=== PATIENT | male | born 1950 | race Caucasian/White ===

== ENCOUNTER 2020-09-04 11:24 | Inpatient (IN) | payer OTHER ==
--- NOTE | 2020-09-04 12:00 | RAD REPORT ---
EXAM DESCRIPTION: CT - Head Brain Wo Cont - 09/04/2020 11:50 am CLINICAL HISTORY: Head injury status post fall COMPARISON: None. TECHNIQUE: Computed axial tomography of the head was obtained. IV contrast was not requested. All CT scans are performed using dose optimization technique as appropriate and may include automated exposure control or mA/KV adjustment according to patient size. FINDINGS: An intracranial bleed is not seen . The ventricles are normal in caliber. No extra-axial fluid collection is noted. Fluid within the sinuses/ mastoids is not seen. IMPRESSION: No acute intracranial abnormality is seen. If patient's symptoms persist MRI of the bra in would be recommended.
[2020-09-04 12:35] LABS: Absolute Lymphocytes (CBC) 1.2 K/uL (0.7-4.9); Hematocrit 34.5 % (39.6-49.0); Lymphocytes % 8.9 % (15.3-44.8); MPV 10.8 fL (7.6-11.3); RBC Red Blood Cell Count 3.96 M/uL (4.33-5.43)
--- NOTE | 2020-09-04 12:37 | RAD REPORT ---
EXAM DESCRIPTION: RAD - Pelvis - 09/04/2020 12:15 pm CLINICAL HISTORY: Pelvic pain status post injury FINDINGS: No fracture or dislocation is seen. Bones are osteoporotic If the patient continues to have symptoms to suggest an occult fracture then CT or MRI would be recom mended
--- NOTE | 2020-09-04 12:37 | RAD REPORT ---
EXAM DESCRIPTION: RAD - Hip Left 2 View - 09/04/2020 12:14 pm CLINICAL HISTORY: Left hip pain status post injury FINDINGS: Diffuse edema is present within soft tissue No fracture or dislocation is seen. Bones are osteoporotic If the patient continues to have symptoms to suggest an occult fracture then CT or MRI would be recom mended
[2020-09-04 12:48] LABS: Potassium 4.2 mmol/L (3.5-5.1)
[2020-09-04 12:55] LABS: Protime INR 1.06
[2020-09-04] MEDS ORDERED: NA CHLORIDE 0.9% 1,000 ML ONE ×2 (15:34→17:41)
[2020-09-04] MEDS ORDERED: ONDANSETRON 4 MG/2 ML VIAL ONE (15:46)
--- NOTE | 2020-09-04 15:47 | ER ---
Nurse's Notes [facility] Name: Antonio Sarkar Age: 70 yrs Sex: Male : 1950 Arrival Date: 09/04/2020 Time: 11:32 Bed 4 Private MD: Diagnosis: Left lower extremity hematoma;Dizziness and giddiness Presentation: 09/04 11:30 Initial Sepsis Screen: Does the patient meet any 2 criteria? No. Patient's initial ph sepsis screen is negative. Does the patient have a suspected source of infection? No. Patient's initial sepsis screen is negative. Risk Assessment: Do you want to hurt yourself or someone else? Patient reports no desire to harm self or others. Onset of symptoms was September 04, 2020. 11:32 Chief complaint: EMS states: Pt reports falling out of bed at approx 0300 this morning, ph landed on L hip and hit L side of head. States that he went back to sleep, woke up later, was able to ambulate but then began having pain and swelling to L hip. Also reports slight dizziness, denies LOC, does take Eliquis. Care prior to arrival: None. Mechanism of Injury: Fall out of bed. Trauma event details: Injury occurred in the [facility], Injury occurred: at home. Injury occurred: September 04, 2020. 11:32 Acuity: KAYDEN 2 ph 11:32 Method Of Arrival: EMS: [facility] ph 12:03 Coronavirus screen: Client denies travel out of the [place] in the last 14 days. At this ph time, the client does not indicate any symptoms associated with coronavirus-19. Ebola Screen: No symptoms or risks identified at this time. Trauma Activation: Physician: ED Physician; Name: Hayden; Notified At: 11:32; Arrived At: 11:28 Physician: General Surgeon; Name: ; Notified At: 11:32; Arrived At: Physician: Radiology; Name: ; Notified At: 11:32; Arrived At: Physician: Respiratory; Name: ; Notified At: 11:32; Arrived At: Physician: Lab; Name: ; Notified At: 11:32; Arrived At: Historical: - Allergies: 11:40 No Known Allergies; ph - Home Meds: 11:40 amlodipine 5 mg tab 1 tab once daily [Active]; [place] Thyroid 165 mg Oral [Active]; ph fenofibrate 150 mg oral cap 1 cap once daily [Active]; furosemide 40 mg Oral tab [Active]; potassium chloride 10 mEq Oral TbER [Active]; Eliquis 5 mg oral tab 1 tab 2 times per day [Active]; lisinopril 20 mg Oral tab 1 tab once daily [Active]; metoprolol tartrate 50 mg Oral tab 1 tab 2 times per day [Active]; - PMHx: 11:40 Hypertension; Hypothyroidism; Atrial Fib; ph - Immunization history:: Adult Immunizations unknown. - Social history:: Smoking status: Patient denies any tobacco usage or history of. - Immunization history: Last tetanus immunization: unknown. - Family history:: not pertinent. - Hospitalizations: : No recent hospitalization is reported. Screenin:42 Abuse screen: Denies threats or abuse. Denies injuries from another. Nutritional ph screening: No deficits noted. Tuberculosis screening: No symptoms or risk factors identified. Fall Risk Fall in past 12 months (25 points). No secondary diagnosis (0 pts). IV access (20 points). Ambulatory Aid- None/Bed Rest/Nurse Assist (0 pts). Gait- Normal/Bed Rest/Wheelchair (0 pts) Mental Status- Oriented to own ability (0 pts). Total Perez Fall Scale indicates Low Risk Score (25-44 pts). Fall prevention measures have been instituted. Side Rails Up X 2 Placed close to Nursing Station Frequent Obs/Assesments occuring Family Present and informed to notify staff if they need to leave bedside As available Patient and Family Educated on Fall Prevention Program and strategies. Primary Survey: 11:41 NO uncontrolled hemorrhage observed. A: The patient is alert. Airway: patent, No ph supplemental oxygen in use on arrival. Oral cavity: clear, Trachea midline. Breathing/Chest: Respiratory pattern: regular, Respiratory effort: spontaneous, unlabored, Breath sounds: clear, Chest inspection: symmetrical rise and fall of the chest. Circulation: Skin color: pink, Skin temperature: warm, dry. Disability Alert. Exposure/Environment: All clothing and personal items were removed. Forensic evidence collection is not deemed to be indicated at this time. Items placed in patient belonging bag. There is no evidence of uncontrolled external bleeding. Obvious injury(ies) are noted at this time: swelling noted to L hip, bruising to L ear and L sabianist area A warming method has been applied: A warm blanket has been provided to the patient. 16:54 Reassessment Airway Airway Patent Oxygen No O2 Breathing/Chest Respiratory pattern ph Regular Respiratory effort Spontaneous Unlabored Breath sounds Clear Chest inspection Symmetrical Circulation Color [place] Temperature Warm Dry. Secondary Survey: 11:42 HEENT: Head Other bruising to L sabianist Ears: bruising to L ear. Musculoskeletal: ph Swelling present in left hip and lateral aspect of left thigh. Assessment: 11:42 Reassessment: Pt taken to CT via stretcher. ph 12:10 General: Appears in no apparent distress. comfortable, well groomed, Behavior is calm, ph cooperative, appropriate for age. Pain: Complains of pain in lateral aspect of left thigh and left hip. Neuro: Level of Consciousness is awake, alert, obeys commands, Oriented to person, place, time, situation. Cardiovascular: Capillary refill < 3 seconds in bilateral fingers. Respiratory: Airway is patent Respiratory effort is even, unlabored, Respiratory pattern is regular, symmetrical. GI: No signs and/or symptoms were reported involving the gastrointestinal system. EENT: Pinna bruising noted to L ear. Derm: Skin is healthy with good turgor, Skin is pink, warm \T\ dry. Musculoskeletal: Circulation, motion, and sensation intact. Range of motion: intact in all extremities, Swelling present in lateral aspect of left thigh and left hip. 13:30 Reassessment: Patient appears in no apparent distress at this time. Patient and/or ph family updated on plan of care and expected duration. Pain level reassessed. Patient is alert, oriented x 3, equal unlabored respirations, skin warm/dry/pink. 14:30 Reassessment: Patient appears in no apparent distress at this time. Patient and/or ph family updated on plan of care and expected duration. Pain level reassessed. Patient is alert, oriented x 3, equal unlabored respirations, skin warm/dry/pink. 15:30 Reassessment: Patient appears in no apparent distress at this time. Patient and/or ph family updated on plan of care and expected duration. Pain level reassessed. Pt attempted to sit up in bed, c/o dizziness, appears pale and tachypneic, also reports nausea, ERP notified and verbal order received for MARLA Gonzalez. 16:00 Reassessment: Patient appears in no apparent distress at this time. Patient and/or ph family updated on plan of care and expected duration. Pain level reassessed. Patient is alert, oriented x 3, equal unlabored respirations, skin warm/dry/pink. Pt reports that dizziness and nausea have improved, COVID swab collected and sent to lab. 17:00 Reassessment: Patient appears in no apparent distress at this time. Patient and/or ph family updated on plan of care and expected duration. Pain level reassessed. Patient is alert, oriented x 3, equal unlabored respirations, skin warm/dry/pink. Pt's at nurse's station to notify staff that pt is feeling dizzy. Pt found to be diaphoretic and hypotensive at 72/45, ERP notified, EKG obtained, additional fluid bolus given and repeat hemoglobin drawn. 17:47 Reassessment: Patient appears in no apparent distress at this time. Patient and/or ph family updated on plan of care and expected duration. Pain level reassessed. Patient is alert, oriented x 3, equal unlabored respirations, skin warm/dry/pink. Pt reports that dizziness has improved, BP currently 125/69. 19:05 Reassessment: Patient appears in no apparent distress at this time. Patient and/or ph family updated on plan of care and expected duration. Pain level reassessed. Patient is alert, oriented x 3, equal unlabored respirations, skin warm/dry/pink. L thigh wrapped w/ FABRICIO wrap and sheet wrapped around hips for compression. Vital Signs: 11:30 BP 118 / 64; Pulse 73; Resp 18; Temp 97.5; Pulse Ox 98% on R/A; Weight 122.47 kg; ph Height 6 ft. 0 in. (182.88 cm); Pain 2/10; 12:45 BP 108 / 65; Pulse 66; Resp 18; Pulse Ox 97% on R/A; ph 14:04 BP 124 / 68; Pulse 67; Resp 18; Pulse Ox 100% on R/A; ph 15:00 BP 107 / 68; Pulse 66; Resp 18; Pulse Ox 100% ; ph 16:30 BP 126 / 65; Pulse 74; Resp 18; Pulse Ox 98% on R/A; ph 17:00 BP 72 / 45; Pulse 66; Resp 18; Pulse Ox 100% on R/A; ph 17:50 BP 123 / 64; Pulse 67; Resp 12; Pulse Ox 99% on R/A; ph 18:06 BP 125 / 57; Pulse 68; ph 19:06 BP 142 / 73; Pulse 65; Resp 20; Pulse Ox 98% on R/A; ph 11:30 Body Mass Index 36.62 (122.47 kg, 182.88 cm) ph Mcneil Coma Score: 11:35 Eye Response: spontaneous(4). Verbal Response: oriented(5). Motor Response: obeys ph commands(6). Total: 15. 12:45 Eye Response: spontaneous(4). Verbal Response: oriented(5). Motor Response: obeys ph commands(6). Total: 15. 14:04 Eye Response: spontaneous(4). Verbal Response: oriented(5). Motor Response: obeys ph commands(6). Total: 15. 15:00 Eye Response: spontaneous(4). Verbal Response: oriented(5). Motor Response: obeys ph commands(6). Total: 15. 16:30 Eye Response: spontaneous(4). Verbal Response: oriented(5). Motor Response: obeys ph commands(6). Total: 15. 17:50 Eye Response: spontaneous(4). Verbal Response: oriented(5). Motor Response: obeys ph commands(6). Total: 15. 19:06 Eye Response: spontaneous(4). Verbal Response: oriented(5). Motor Response: obeys ph commands(6). Total: 15. Trauma Score (Adult): 11:35 Eye Response: spontaneous(1); Verbal Response: oriented(1); Motor Response: obeys ph commands(2); Systolic BP: > 89 mm Hg(4); Respiratory Rate: 10 to 29 per min(4); Lorena Score: 15; Trauma Score: 12 12:45 Eye Response: spontaneous(1); Verbal Response: oriented(1); Motor Response: obeys ph commands(2); Systolic BP: > 89 mm Hg(4); Respiratory Rate: 10 to 29 per min(4); Mcneil Score: 15; Trauma Score: 12 14:04 Eye Response: spontaneous(1); Verbal Response: oriented(1); Motor Response: obeys ph commands(2); Systolic BP: > 89 mm Hg(4); Respiratory Rate: 10 to 29 per min(4); Mcneil Score: 15; Trauma Score: 12 15:00 Eye Response: spontaneous(1); Verbal Response: oriented(1); Motor Response: obeys ph commands(2); Systolic BP: > 89 mm Hg(4); Respiratory Rate: 10 to 29 per min(4); Mcneil Score: 15; Trauma Score: 12 16:30 Eye Response: spontaneous(1); Verbal Response: oriented(1); Motor Response: obeys ph commands(2); Systolic BP: > 89 mm Hg(4); Respiratory Rate: 10 to 29 per min(4); Lorena Score: 15; Trauma Score: 12 17:50 Eye Response: spontaneous(1); Verbal Response: oriented(1); Motor Response: obeys ph commands(2); Systolic BP: > 89 mm Hg(4); Respiratory Rate: 10 to 29 per min(4); Lorena Score: 15; Trauma Score: 12 19:06 Eye Response: spontaneous(1); Verbal Response: oriented(1); Motor Response: obeys ph commands(2); Systolic BP: > 89 mm Hg(4); Respiratory Rate: 10 to 29 per min(4); Mcneil Score: 15; Trauma Score: 12 ED Course: 11:32 Patient arrived in ED. ph 11:35 Triage completed. ph 11:37 Mookie Blake MD is Attending Physician. rn 11:40 Arm band placed on Patient placed in an exam room, on a stretcher, on pulse oximetry. ph 11:50 CT Head Brain wo Cont In Process Unspecified. EDMS 12:02 Arlene Crowder, RN is Primary Nurse. ph 12:11 XRAY Hip LEFT 2 view In Process Unspecified. EDMS 12:11 X-ray completed. Portable x-ray completed in exam room. Patient tolerated procedure sw well. 12:12 XRAY Pelvis In Process Unspecified. EDMS 12:23 Initial lab(s) drawn, by me, sent to lab. Inserted saline lock: 20 gauge in left hand, jl7 using aseptic technique. Blood collected. 12:28 Patient has correct armband on for positive identification. Bed in low position. Call ph light in reach. Side rails up X 1. Pulse ox on. NIBP on. Door closed. Noise minimized. Warm blanket given. 12:28 Patient maintains SpO2 saturation greater than 95% on room air. ph 12:28 Thermoregulation: warm blanket given to patient. ph 13:00 Ice pack to injury. may 15:46 Salvatore Rivera is Hospitalizing Provider. rn 16:53 No provider procedures requiring assistance completed. Patient admitted, IV remains in ph place. Administered Medications: 15:17 Drug: NS 0.9% 1000 ml Route: IV; Rate: 1000 ml; Site: left hand; ph 16:35 Follow up: Response: No adverse reaction; IV Status: Completed infusion; IV Intake: ph 1000ml 15:43 Drug: Zofran (Ondansetron) 4 mg Route: IVP; Site: left hand; ph 16:55 Follow up: Response: No adverse reaction; Nausea is decreased ph 17:25 Drug: NS 0.9% 500 ml Route: IV; Rate: bolus; Site: left hand; ph 18:15 Follow up: Response: No adverse reaction; IV Status: Completed infusion; IV Intake: ph 500ml Intake: 11:35 PO: 0ml; Total: 0ml. ph 16:30 IV: 1000ml (IV Fluid); Total: 1000ml. ph 16:35 IV: 1000ml; Total: 2000ml. ph 18:15 IV: 500ml; Total: 2500ml. ph Output: 11:35 Urine: 0ml; Total: 0ml. ph Outcome: 15:47 Decision to Hospitalize by Provider. rn 19:45 Admitted to Med/surg accompanied by tech, via stretcher, with chart, Report called to demetra Hancock RN 19:45 Condition: good 19:45 Instructed on the need for admit. 19:46 Patient left the ED. demetra 19:46 Patient's length of stay in the Emergency Department was greater than 2 hours. awaiting demetra admissionPatient's length of stay extended due to Signatures: Dispatcher [employer] EDMS Mookie Blake MD MD rn Hall, Patricia, RN RN Sada Cali Jahala, RN RN jl7 Malcaba, Joseph, RN AMBER mccrary
--- NOTE | 2020-09-04 15:48 | EDPHYS ---
Physician Documentation [facility] Name: Antonio Sarkar Age: 70 yrs Sex: Male : 1950 Arrival Date: 09/04/2020 Time: 11:32 Bed 4 Private MD: ED Physician Mookie Blake HPI: 09/04 13:24 This 70 yrs old Male presents to ER via EMS with complaints of Fall Injury, rn Hip Pain. 13:24 Details of fall: The patient fell from a supine position. Onset: The symptoms/episode rn began/occurred this morning. Associated injuries: The patient sustained injury to the head, left hip. Severity of symptoms: At their worst the symptoms were moderate, in the emergency department the symptoms are unchanged. The patient has not experienced similar symptoms in the past. The patient has not recently seen a physician. Reports fall out of bed this AM, hit head and left hip, on eliquis. Reports able to walk initially, then got more sore. Reports swelling to left lateral hip and increase in soreness. No chest pain or tenderness, no back or abd pain.. Historical: - Allergies: 11:40 No Known Allergies; ph - Home Meds: 11:40 amlodipine 5 mg tab 1 tab once daily [Active]; [place] Thyroid 165 mg Oral [Active]; ph fenofibrate 150 mg oral cap 1 cap once daily [Active]; furosemide 40 mg Oral tab [Active]; potassium chloride 10 mEq Oral TbER [Active]; Eliquis 5 mg oral tab 1 tab 2 times per day [Active]; lisinopril 20 mg Oral tab 1 tab once daily [Active]; metoprolol tartrate 50 mg Oral tab 1 tab 2 times per day [Active]; - PMHx: 11:40 Hypertension; Hypothyroidism; Atrial Fib; ph - Immunization history:: Adult Immunizations unknown. - Social history:: Smoking status: Patient denies any tobacco usage or history of. - Immunization history: Last tetanus immunization: unknown. - Family history:: not pertinent. - Hospitalizations: : No recent hospitalization is reported. ROS: 13:24 Constitutional: Negative for fever, chills, and weight loss, Eyes: Negative for injury, rn pain, redness, and discharge, Neck: Negative for injury, pain, and swelling, Cardiovascular: Negative for chest pain, palpitations, and edema, Respiratory: Negative for shortness of breath, cough, wheezing, and pleuritic chest pain, Abdomen/GI: Negative for abdominal pain, nausea, vomiting, diarrhea, and constipation, Back: Negative for injury and pain, : Negative for injury, bleeding, discharge, and swelling, MS/Extremity: + left hip swelling and pain Skin: Negative for rash, and discoloration, Neuro: Negative for headache, weakness, numbness, tingling, and seizure. Exam: 13:24 Constitutional: This is a well developed, well nourished patient who is awake, alert, rn and in no acute distress. Head/Face: + left temporal ecchymosis, no laceration Eyes: Pupils equal round and reactive to light, extra-ocular motions intact. Neck: No midline tenderness Chest/axilla: No focal rib tenderness Cardiovascular: Irregular rhythm, regular rate. No pulse deficits. Respiratory: No increased work of breathing, no retractions or nasal flaring. Abdomen/GI: soft, non-tender Skin: Warm, dry MS/ Extremity: Pulses equal, no cyanosis. Neuro: Awake and alert, GCS 15, oriented to person, place, time, and situation. Cranial nerves II-XII grossly intact. Motor strength 5/5 in all extremities. Sensory grossly intact. Vital Signs: 11:30 BP 118 / 64; Pulse 73; Resp 18; Temp 97.5; Pulse Ox 98% on R/A; Weight 122.47 kg; ph Height 6 ft. 0 in. (182.88 cm); Pain 2/10; 12:45 BP 108 / 65; Pulse 66; Resp 18; Pulse Ox 97% on R/A; ph 14:04 BP 124 / 68; Pulse 67; Resp 18; Pulse Ox 100% on R/A; ph 15:00 BP 107 / 68; Pulse 66; Resp 18; Pulse Ox 100% ; ph 16:30 BP 126 / 65; Pulse 74; Resp 18; Pulse Ox 98% on R/A; ph 17:00 BP 72 / 45; Pulse 66; Resp 18; Pulse Ox 100% on R/A; ph 17:50 BP 123 / 64; Pulse 67; Resp 12; Pulse Ox 99% on R/A; ph 18:06 BP 125 / 57; Pulse 68; ph 19:06 BP 142 / 73; Pulse 65; Resp 20; Pulse Ox 98% on R/A; ph 11:30 Body Mass Index 36.62 (122.47 kg, 182.88 cm) ph [place] Coma Score: 11:35 Eye Response: spontaneous(4). Verbal Response: oriented(5). Motor Response: obeys ph commands(6). Total: 15. 12:45 Eye Response: spontaneous(4). Verbal Response: oriented(5). Motor Response: obeys ph commands(6). Total: 15. 14:04 Eye Response: spontaneous(4). Verbal Response: oriented(5). Motor Response: obeys ph commands(6). Total: 15. 15:00 Eye Response: spontaneous(4). Verbal Response: oriented(5). Motor Response: obeys ph commands(6). Total: 15. 16:30 Eye Response: spontaneous(4). Verbal Response: oriented(5). Motor Response: obeys ph commands(6). Total: 15. 17:50 Eye Response: spontaneous(4). Verbal Response: oriented(5). Motor Response: obeys ph commands(6). Total: 15. 19:06 Eye Response: spontaneous(4). Verbal Response: oriented(5). Motor Response: obeys ph commands(6). Total: 15. Trauma Score (Adult): 11:35 Eye Response: spontaneous(1); Verbal Response: oriented(1); Motor Response: obeys ph commands(2); Systolic BP: > 89 mm Hg(4); Respiratory Rate: 10 to 29 per min(4); [place] Score: 15; Trauma Score: 12 12:45 Eye Response: spontaneous(1); Verbal Response: oriented(1); Motor Response: obeys ph commands(2); Systolic BP: > 89 mm Hg(4); Respiratory Rate: 10 to 29 per min(4); [place] Score: 15; Trauma Score: 12 14:04 Eye Response: spontaneous(1); Verbal Response: oriented(1); Motor Response: obeys ph commands(2); Systolic BP: > 89 mm Hg(4); Respiratory Rate: 10 to 29 per min(4); [place] Score: 15; Trauma Score: 12 15:00 Eye Response: spontaneous(1); Verbal Response: oriented(1); Motor Response: obeys ph commands(2); Systolic BP: > 89 mm Hg(4); Respiratory Rate: 10 to 29 per min(4); [place] Score: 15; Trauma Score: 12 16:30 Eye Response: spontaneous(1); Verbal Response: oriented(1); Motor Response: obeys ph commands(2); Systolic BP: > 89 mm Hg(4); Respiratory Rate: 10 to 29 per min(4); [place] Score: 15; Trauma Score: 12 17:50 Eye Response: spontaneous(1); Verbal Response: oriented(1); Motor Response: obeys ph commands(2); Systolic BP: > 89 mm Hg(4); Respiratory Rate: 10 to 29 per min(4); [place] Score: 15; Trauma Score: 12 19:06 Eye Response: spontaneous(1); Verbal Response: oriented(1); Motor Response: obeys ph commands(2); Systolic BP: > 89 mm Hg(4); Respiratory Rate: 10 to 29 per min(4); [place] Score: 15; Trauma Score: 12 MDM: 11:38 Patient medically screened. rn 15:44 Differential diagnosis: closed head injury, contusion, fracture, hematoma. Data rn reviewed: vital signs, nurses notes, lab test result(s), radiologic studies, CT scan, plain films, and as a result, I will admit patient. Counseling: I had a detailed discussion with the patient and/or guardian regarding: the historical points, exam findings, and any diagnostic results supporting the discharge/admit diagnosis, lab results, radiology results, the need for further work-up and treatment in the hospital. Response to treatment: the patient's symptoms have mildly improved after treatment, and as a result, I will admit patient. Admission orders: after a detailed discussion of the patient's condition and case, the admit orders are written by me. ED course: Pt without fracture, ct head no acute findings, still complaining of feeling lightheaded, will admit to hospitalist service for further observation, fluids, serial H/H, ice, compression wrapping to make sure hematoma does not increase in size or silva blood. . 17:34 ED course: Called to room after patient tried to situp and got lightheaded, better when rn laying down, repeat BP 125/69, repeat hemoglobin sent, patient declines blood if needed is [employer]. . 09/04 11:39 Order name: CBC with Diff; Complete Time: 12:45 rn 09/04 11:39 Order name: Protime (+inr); Complete Time: 13:19 rn 09/04 11:39 Order name: Ptt, Activated; Complete Time: 13:19 rn 09/04 11:39 Order name: Basic Metabolic Panel; Complete Time: 13:19 rn 09/04 15:32 Order name: Glucose, Ancillary Testing; Complete Time: 16:23 EDWV 09/04 11:39 Order name: XRAY Hip LEFT 2 view; Complete Time: 12:45 rn 09/04 11:39 Order name: XRAY Pelvis; Complete Time: 12:45 rn 09/04 11:39 Order name: CT Head Brain wo Cont; Complete Time: 12:13 rn 09/04 17:27 Order name: Hemoglobin rn 09/04 17:43 Order name: Hemoglobin; Complete Time: 18:37 EDWV 09/04 17:53 Order name: SARS-COV-2 RT PCR; Complete Time: 18:37 [facility] 09/04 11:39 Order name: IV Start; Complete Time: 12:23 rn Administered Medications: 15:17 Drug: NS 0.9% 1000 ml Route: IV; Rate: 1000 ml; Site: left hand; ph 16:35 Follow up: Response: No adverse reaction; IV Status: Completed infusion; IV Intake: ph 1000ml 15:43 Drug: Zofran (Ondansetron) 4 mg Route: IVP; Site: left hand; ph 16:55 Follow up: Response: No adverse reaction; Nausea is decreased ph 17:25 Drug: NS 0.9% 500 ml Route: IV; Rate: bolus; Site: left hand; ph 18:15 Follow up: Response: No adverse reaction; IV Status: Completed infusion; IV Intake: ph 500ml Disposition: 09/04/20 15:47 Hospitalization ordered by Salvatore Rivera for Observation. Preliminary diagnosis are Left lower extremity hematoma, Dizziness and giddiness. - Bed requested for Telemetry/MedSurg (observation). - Status is Observation. jm8 - Condition is Stable. - Problem is new. - Symptoms have improved. Signatures: Dispatcher [employer] EDMS Nati Pozo Roman, MD MD rn Hall, Patricia, RN RN ph Salvatore Murray RN RN jm8 Corrections: (The following items were deleted from the chart) 13:24 12:20 CORONAVIRUS+MR.LAB.BRZ ordered. EDWV EDMS 13:26 13:24 Reports fall out of bed this AM, hit head and left hip, on eliquis. Reports able rn to walk initially, then got more sore. Reports swelling to left lateral hip and increase in soreness. . rn 16:30 15:51 CORONAVIRUS+MR.LAB.BRZ ordered. EDWV EDMS 18:48 15:47 Hospitalization Ordered by Salvatore Rivera for Observation. Preliminary diagnosis bd is Left lower extremity hematoma; Dizziness and giddiness. Bed requested for Telemetry/MedSurg (observation). Status is Observation. Condition is Stable. Problem is new. Symptoms have improved. rn 19:46 18:48 09/04/2020 15:47 Hospitalization Ordered by Salvatore Rivera for Observation. jm8 Preliminary diagnosis is Left lower extremity hematoma; Dizziness and giddiness. Bed requested for Telemetry/MedSurg (observation). Status is Observation. Condition is Stable. Problem is new. Symptoms have improved. bd
--- NOTE | 2020-09-04 18:12 | P.HP ---
Certification for Inpatient Patient admitted to: Observation With expected LOS: <2 Midnights Patient will require the following post-hospital care: None Practitioner: I am a practitioner with admitting privileges, knowledge of patient current condition, hospital course, and medical plan of care. Services: Services provided to patient in accordance with Admission requirements found in Title 42 Section 412.3 of the Code of Federal Regulations Patient History Date of Service: 09/04/20 Primary Care Provider: Dr. Segun Polanco Reason for admission: large hematoma L hip after fall History of Present Illness: This is a 70 y/o M w/ HTN, HLD, hypothyroid, a-fib on [employer], who presents today after a fall injury this morning. He was sleeping and rolled off his bed after having a vivid dream. He immediately woke up after his fall. He hit his head and L hip. He denies any LOC. He was able to stand and walk after fall. He started having severe pain 8/10 an hour after his fall. He started to feel weak, diaphoretic, dizzy and had some relief w/ tonic water. He denies any numbness or tingling in extremities. Head CT: no acute abnormalities seen. Pelvis XR: no fracture or dislocation is seen. bones are osteoporotic Hip XR: diffuse edema is present w/in soft tissue. no fracture or dislocation is seen. bones are osteoporotic - Past Medical/Surgical History -: HTN -: HLD -: hypothyroid -: a-fib -: knee replacement -: carpal tunnel Psychosocial/ Personal History: lives w/ at home - Family History Family History: Reviewed- Non-Contributory - Family History Father -: Kidney disease (a-fib) Mother -: Heart disease, Diabetes - Social History Smoking Status: Never smoker Alcohol use: No CD- Drugs: No Caffeine use: Yes Review of Systems Musculoskeletal: As per HPI Physical Examination - Physical Exam General: Alert, In no apparent distress, Oriented x3, Other (appears pale) HEENT: Atraumatic, Normocephalic, Mucous membr. moist/pink, EOMI Neck: Supple Respiratory: Clear to auscultation bilaterally, Normal air movement Cardiovascular: No edema, Normal pulses, Regular rate/rhythm Gastrointestinal: Normal bowel sounds, Soft and benign, Non-distended, No tenderness, No rebound Musculoskeletal: Tenderness (L thigh/hip), Other (hematoma on L thigh/hip) Neurological: Normal speech, Normal tone, Sensation intact, Normal affect - Studies Laboratory Data (last 24 hrs) 09/04/20 12:17: Sodium 140, Potassium 4.2, BUN 25 H, Creatinine 1.28, Glucose 105 09/04/20 12:17: PT 12.2, INR 1.06, APTT 25.6 09/04/20 12:17: WBC 13.90 H, Hgb 11.6 L, Hct 34.5 L, Plt Count 224 Assessment and Plan - Problems (Diagnosis) (1) Hematoma Current Visit: Yes Status: Acute (2) HTN (hypertension) Current Visit: Yes Status: Chronic Qualifiers: Hypertension type: essential hypertension Qualified Code(s): I10 - Essential (primary) hypertension (3) Hyperlipemia Current Visit: Yes Status: Chronic (4) Hypothyroid Current Visit: Yes Status: Chronic (5) Atrial fibrillation Current Visit: Yes Status: Chronic - Plan ice packs and compression wrap pain control with norco prn trend H/H pt is a Che[place]ism, declines any blood products consult PT thyroid and lipid panel pending continue home meds, hold eliquis Discharge Plan: Home Plan to discharge in: 24 Hours - Advance Directives Does patient have a Living Will: No Does patient have a Durable POA for Healthcare: No - Code Status/Comfort Care Code Status Assessed: No Code Status: Do Not Attempt Resuscitat
[2020-09-04] MEDS ORDERED: ONDANSETRON 4 MG/2 ML VIAL IV PRN (20:23)
[2020-09-04] MEDS ORDERED: ACETAMINOPHEN 500 MG TAB PO PRN (20:23)
[2020-09-04] MEDS: HYDROCODONE/APAP 5/325 MG TAB PO PRN (20:36)
[2020-09-04] MEDS: NA CHLORIDE 0.9% 1,000 ML IV SCH (20:37)
[2020-09-04 21:33] LABS: Thyroid Stimulating Hormone 0.08 uIU/mL (0.360-3.740)
[2020-09-05 01:21] LABS: Urine Appearance CLEAR (Clear); Urine Bilirubin NEGATIVE (Negative); Urine Blood NEGATIVE (Negative); Urine Color YELLOW (Yellow); Urine Glucose NEGATIVE (Negative); Urine Protein NEGATIVE (Negative); Urine Urobilinogen 0.2 mg/dL (0.2-1.0)
[2020-09-05 01:26] LABS: Urine Microscopic Reflex NO UMIC
[2020-09-05 06:17] LABS: Absolute Lymphocytes (CBC) 1.6 K/uL (0.7-4.9); Basophils % 1.1 % (0-1.3); Hematocrit 26.8 % (39.6-49.0); Lymphocytes % 22.9 % (15.3-44.8); RBC Red Blood Cell Count 3.03 M/uL (4.33-5.43)
[2020-09-05 06:24] LABS: Magnesium 2.4 mg/dL (1.8-2.4); Phosphorus 3.5 mg/dL (2.5-4.9); Potassium 3.8 mmol/L (3.5-5.1)
[2020-09-05] MEDS: NA CHLORIDE 0.9% 1,000 ML IV SCH ×2 (06:42→17:43)
[2020-09-05] MEDS: HYDROCODONE/APAP 5/325 MG TAB PO PRN (06:44)
[2020-09-05] MEDS ORDERED: PNEUMOCOCCAL VACCINE 0.5 ML IMVAC ONE (08:00)
[2020-09-05] MEDS ORDERED: POTASSIUM CL SA 10 MEQ TAB PO ONE (09:00)
--- NOTE | 2020-09-05 09:36 | RAD REPORT ---
EXAM DESCRIPTION: CT - Abdomen Pelvis Wo Contrast - 09/05/2020 8:41 am CLINICAL HISTORY: fall, L hip pain, r/o retroperitoneal bleed, L hip Pelvic pain, hip pain COMPARISON: Hip Left 2 View dated 09/04/2020 TECHNIQUE: Axial [address] imaging of the abdomen and pelvis was performed without IV contrast. No IV contrast was given because of allergy, abnormal renal function, patient refusal or physician re quest. No oral contrast administered. All CT scans are performed using dose optimization technique as appropriate and may include automated exposure control or mA/KV adjustment according to patient size. FINDINGS: No suspicious findings in the lung bases. The liver, spleen and pancreas show no suspicious findings on non-contrast imaging. There is a 3.7 ce ntimeter oval low-density mass lateral right lobe present with simple cysts the far most likely etiol ogy. Numerous gallstones are seen layering in the dependent portion of the gallbladder. No biliary tr ee dilatation. No acute gallbladder finding suspected. No hydronephrosis or suspicious renal mass. Nonobstructing 3 mm calculus seen lower pole left kidney. Fullness of the left renal pelvis could be parapelvic cysts or normal variant extrarenal pelvis. Eliud al artery calcifications are present on the left. No significant adrenal finding. Isodense renal mass es and pyelonephritis cannot be excluded in the absence of IV contrast. The urinary bladder is withou t significant finding. No dilated bowel loops or bowel wall thickening. No free air, free fluid or stranding in the periton eal or retroperitoneal spaces. No hernia, mass or bulky lymphadenopathy. Prominent lumbar spine degenerative changes are present. No acute lumbar finding. No pelvic fracture. Sacral ala are intact. No fracture of the proximal left femur identifiable. Hip joint degenerative c hanges are present. There is a large hematoma lateral to the left pelvis and hip joint. This measures 20 cm CC x 10 cm AP x 6 cm TR. There is additional bruising or edema in the subcutaneous fatty tissues. No retroperitone al hemorrhage. IMPRESSION: Large 20 x 10 x 6 cm hematoma in the deep subcutaneous fatty tissues lateral to the left hip joint. There is contusion and edema in the surrounding subcutaneous fat. No retroperitoneal hemorrhage. No proximal femur or pelvic fracture identifiable. Additional nonacute findings detailed in the body of the report. Full assessment is limited is the absence of IV contrast.
[2020-09-05] MEDS ORDERED: AMIODARONE HCL 200 MG TAB PO ONE (10:34)
[2020-09-05] MEDS ORDERED: METOPROLOL TARTRATE 5 MG/5 ML INJ IV STA (14:18)
--- NOTE | 2020-09-05 14:54 | P.PN ---
Subjective Date of Service: 09/05/20 Primary Care Provider: Dr. 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, pain improving) Review of Systems 10-point ROS is otherwise unremarkable Physical Examination - Vital Signs Temperature: 98.5 F Blood Pressure: 113/62 Pulse: 142 Respirations: 17 Pulse Ox (%): 96 - Studies Laboratory Data (last 24 hrs) 09/05/20 09:57: Hgb 8.9 L 09/05/20 05:33: Sodium 143, Potassium 3.8, BUN 26 H, Creatinine 1.40 H, Glucose 138 H, Phosphorus 3.5, Magnesium 2.4 09/05/20 05:33: WBC 7.00 D, Hgb 8.8 L, Hct 26.8 L D, Plt Count 171 D 09/04/20 20:57: Triglycerides 155 H, Cholesterol 133, HDL Cholesterol 32 L, Cholesterol/HDL Ratio 4.16 09/04/20 17:30: Hgb 11.1 L Assessment & Plan Physician Review Additional Text: Physical Exam General: Alert, In no apparent distress, Oriented x3, Other (appears pale) HEENT: Atraumatic, Normocephalic, Mucous membr. moist/pink, EOMI Neck: Supple Respiratory: Clear to auscultation bilaterally, Normal air movement Cardiovascular: No edema, Normal pulses, Regular rate/rhythm Gastrointestinal: Normal bowel sounds, Soft and benign, Non-distended, No tenderness, No rebound Musculoskeletal: Tenderness (L thigh/hip), Other (hematoma on L thigh/hip) Neurological: Normal speech, Normal tone, Sensation intact, Normal affect Problem list L lateral thigh Hematoma s/p fall Hypertension ORALIA, no h/o CKD Hypothyroid Hyperlipidemia Paroxysmal atrial fibrillation, chronic; on Eliquis -continue compression wrap, ice packs -pain control with norco PRN -H/H down to 8s today from 11, recheck later this morning -BP low as well, likely from acute blood loss -continue gentle IVF for ORALIA, unknown pt's baseline, reports no history of CKD as far as he knows -had low UOP the last 24hrs and reports being very dehydrated -continue home thyroid medication -BP on low end, hold anti-hypertensives -monitor on telemetry -restart amiodarone, metoprolol if needed / BP better -hold [place] -PT consulted Dispo: anticipate dc home, likely tomorrow, needs stable H/H, vitals improved, PT eval Time Spent Managing Pts Care (In Minutes): 35
[2020-09-05] MEDS: METOPROLOL TAR 50 MG TAB PO SCH ×2 (17:43→20:51)
[2020-09-05 21:12] VITALS: BMI 41.0
[2020-09-05 22:44] VITALS: O2SAT 100
[2020-09-06] MEDS: NA CHLORIDE 0.9% 1,000 ML IV SCH (02:42)
[2020-09-06 04:34] LABS: Magnesium 2.2 mg/dL (1.8-2.4); Potassium 4.2 mmol/L (3.5-5.1)
[2020-09-06 04:36] LABS: Absolute Lymphocytes (CBC) 1.8 K/uL (0.7-4.9); Basophils % 1.3 % (0-1.3); Hematocrit 25.3 % (39.6-49.0); Lymphocytes % 24.6 % (15.3-44.8); MPV 10.9 fL (7.6-11.3); RBC Red Blood Cell Count 2.85 M/uL (4.33-5.43)
[2020-09-06] MEDS ORDERED: POLYETHYL GLY 3350 17 GM/DOSE PO ONE (06:49)
--- NOTE | 2020-09-06 07:27 | EKG ---
Test Date: 2020-09-05 Test Time: 09:35:41 Nurse'S Aides Teacher: FEDE MEASUREMENT RESULTS: Intervals: Rate: 127 IA: QRSD: 132 QT: 350 QTc: 508 [place]: P: IA: QRS: 45 T: 4 INTERPRETIVE STATEMENTS: Atrial fibrillation with rapid ventricular response with premature ventricular or aberrantly conducted complexes Right bundle branch block Abnormal ECG Compared to ECG 09/04/2020 17:25:51 Ventricular premature complex(es) now present Right bundle-branch block now present Sinus rhythm no longer present Atrial premature complex(es) no longer present ST (T wave) deviation no longer present Prolonged QT interval no longer present Electronically Signed On 09-06-20 07:26:33 CDT by Naga Marroquin
[2020-09-06 08:09] VITALS: BP 119/58; TEMP 98
[2020-09-06] MEDS: METOPROLOL TAR 50 MG TAB PO SCH (08:33)
[2020-09-06] MEDS ORDERED: AMIODARONE HCL 200 MG TAB PO SCH (09:00)
[2020-09-06] MEDS ORDERED: THYROID PORK PO SCH (09:00)
--- NOTE | 2020-09-06 09:28 | P.DS ---
Admission Date: 09/04/20 Discharge Date: 09/06/20 Primary Care Provider: Dr. Segun Polanco Disposition: ROUTINE DISCHARGE Discharge Condition: GOOD Reason for Admission: large hematoma L hip after fall Procedures: CT Head (09/04): No acute intracranial abnormality is seen. If patient's symptoms persist MRI of the brain would be recommended. Hip X-ray (09/04): Diffuse edema is present within soft tissue No fracture or dislocation is seen. Bones are osteoporotic If the patient continues to have symptoms to suggest an occult fracture then CT or MRI would be recommended Pelvis x-ray (09/04): No fracture or dislocation is seen. Bones are osteoporotic CT Abd/pelvis (09/05): FINDINGS: No suspicious findings in the lung bases. The liver, spleen and pancreas show no suspicious findings on non-contrast imaging. There is a 3.7 centimeter oval low-density mass lateral right lobe present with simple cysts the far most likely etiology. Numerous gallstones are seen layering in the dependent portion of the gallbladder. No biliary tree dilatation. No acute gallbladder finding suspected. No hydronephrosis or suspicious renal mass. Nonobstructing 3 mm calculus seen lower pole left kidney. Fullness of the left renal pelvis could be parapelvic cysts or normal variant extrarenal pelvis. Renal artery calcifications are present on the left. No significant adrenal finding. Isodense renal masses and pyelonephritis cannot be excluded in the absence of IV contrast. The urinary bladder is without significant finding. No dilated bowel loops or bowel wall thickening. No free air, free fluid or stranding in the peritoneal or retroperitoneal spaces. No hernia, mass or bulky lymphadenopathy. Prominent lumbar spine degenerative changes are present. No acute lumbar finding. No pelvic fracture. Sacral ala are intact. No fracture of the proximal left femur identifiable. Hip joint degenerative changes are present. There is a large hematoma lateral to the left pelvis and hip joint. This measures 20 cm CC x 10 cm AP x 6 cm TR. There is additional bruising or edema in the subcutaneous fatty tissues. No retroperitoneal hemorrhage. IMPRESSION: Large 20 x 10 x 6 cm hematoma in the deep subcutaneous fatty tissues lateral to the left hip joint. There is contusion and edema in the surrounding subcutaneous fat. No retroperitoneal hemorrhage. No proximal femur or pelvic fracture identifiable. Additional nonacute findings detailed in the body of the report. Full assessment is limited is the absence of IV contrast. Problem list L lateral thigh Hematoma s/p fall acute on chronic anemia (Blood loss) Hypertension ORALIA, no h/o CKD - prerenal / hypovolemia Hypothyroid Hyperlipidemia Paroxysmal atrial fibrillation, chronic; on Eliquis Brief History of Present Illness: 70 y/o M w/ HTN, HLD, hypothyroid, a-fib on eliquis, who presents today after a fall injury this morning. He was sleeping and rolled off his bed after having a vivid dream. He immediately woke up after his fall. He hit his head and L hip. He denies any LOC. He was able to stand and walk after fall. He started having severe pain 8/10 an hour after his fall. He started to feel weak, diaphoretic, dizzy and had some relief w/ tonic water. He denies any numbness or tingling in extremities. Hospital Course: Workup was rather unremarkable except for noted hematoma. Patient was found to have a mild ORALIA and appeared dehydrated on exam. His hemoglobin dropped from 11 to 8 overnight, but then remained stable in the 8s. His pain and swelling improved. He was evaluated and did well with PT. He denied any dizziness/lightheadedness and was feeling much better. He was discharged home. His blood pressure remained ~100-115/60s during his hospitalization. He was advised to hold and slowly restart his BP medication at home once BP became elevated. Advised to hold Eliquis for another 3-4 days. Follow up PCP in 3-5 days Vital Signs/Physical Exam: Physical Exam General: Alert, In no apparent distress, Oriented x3, pale HEENT: Atraumatic, Normocephalic, Mucous membr. moist/pink, EOMI Respiratory: Clear to auscultation bilaterally, Normal air movement Cardiovascular: No edema, Normal pulses, Regular rate/rhythm Gastrointestinal: Normal bowel sounds, Soft and benign, Non-distended, No tender ness Musculoskeletal: Tenderness (mild L thigh/hip), hematoma on L thigh/hip with overlying ecchymosis Neurological: Normal speech, Sensation intact, Normal affect Temp Pulse Resp BP Pulse Ox 98 F 66 18 119/58 L 100 09/06/20 08:00 09/06/20 08:33 09/06/20 08:00 09/06/20 08:33 09/06/20 08:00 Laboratory Data at Discharge: WBC 7.30 K/uL (4.3-10.9) 09/06/20 03:52 Hgb 8.3 g/dL (13.6-17.9) L 09/06/20 03:52 Hct 25.3 % (39.6-49.0) L 09/06/20 03:52 Plt Count 154 K/uL (152-406) 09/06/20 03:52 PT 12.2 SECONDS (9.5-12.5) 09/04/20 12:17 INR 1.06 09/04/20 12:17 APTT 25.6 SECONDS (24.3-36.9) 09/04/20 12:17 Sodium 141 mmol/L (136-145) 09/06/20 03:52 Potassium 4.2 mmol/L (3.5-5.1) 09/06/20 03:52 BUN 17 mg/dL (7-18) 09/06/20 03:52 Creatinine 1.16 mg/dL (0.55-1.3) 09/06/20 03:52 Glucose 90 mg/dL (74-106) 09/06/20 03:52 Phosphorus 3.5 mg/dL (2.5-4.9) 09/05/20 05:33 Magnesium 2.2 mg/dL (1.8-2.4) 09/06/20 03:52 Triglycerides 155 mg/dL (<150) H 09/04/20 20:57 Cholesterol 133 mg/dL (<200) 09/04/20 20:57 HDL Cholesterol 32 mg/dL (40-60) L 09/04/20 20:57 Cholesterol/HDL Ratio 4.16 09/04/20 20:57 Home Medications: RX: Amiodarone HCl [Cordarone*] 200 mg PO DAILY 09/05/20 RX: Amlodipine [Norvasc*] 5 mg PO DAILY 09/05/20 RX: Fenofibrate [Tricor*] 145 mg PO DAILY 09/05/20 RX: Furosemide 40 mg PO DAILY 09/05/20 RX: Lisinopril [Zestril] 20 mg PO DAILY 09/05/20 RX: Metoprolol Tartrate 1 tab PO BID 09/05/20 RX: Potassium Chloride [Klor-Con 10] 10 meq PO DAILY 09/05/20 RX: Thyroid,Pork [Peyton Thyroid] 135 mcg PO DAILY 09/05/20 Physician Discharge Instructions: You were found to have a large hematoma of your left hip after your fall. x-ray and CT scan were negative for any fracture. You may bear weight on your leg as tolerated. Recommend tylenol as needed for pain medication, can try ibuprofen as well. Your hemoglobin dropped from ~11 to 8 as a result of your trauma/hematoma and IV fluids. This remained stable prior to discharge. Ok to restart Eliquis after another 3 days of holding it. You were noted to have low blood pressure and mild kidney insufficiency which improved with IV fluids. This was likely due to being dehydrated. Recommend not to take your blood pressure medications - lisinopril and amlodipine until you follow up with your PCP in the next 3-5 days, or can restart amlodipine if your blood pressure is >140/90 at home. Recommend not taking your furosemide pill as well, until you follow up with your PCP, as you were dehydrated on admission and still recovering. Follow up: PCP in 3-5 days. Diet: AHA Activity: Ad darya (as tolerated) Followup: Segun Kaur MD [Primary Care Provider] - Time spent managing pt's care (in minutes): 45
--- NOTE | 2020-09-06 16:02 | EKG ---
Test Date: 2020-09-04 Test Time: 17:25:51 Molecular Physicist: SV MEASUREMENT RESULTS: Intervals: Rate: 66 AL: 164 QRSD: 86 QT: 442 QTc: 463 [place]: P: 43 AL: 164 QRS: 35 T: 9 INTERPRETIVE STATEMENTS: Sinus rhythm with premature atrial complexes Nonspecific ST and T wave abnormality Prolonged QT Abnormal ECG No previous ECG available for comparison Electronically Signed On 09-06-20 16:00:06 CDT by Naga Marroquin
== END 2020-09-06 10:14 | disposition home or self-care (01) | DRG 605 ==
LOC: ER 11:24 → ERHOLD 17:09 → 2ND 19:29 → OBSVTOIN 09-05 12:26
PROVIDERS: ADMIT Internal Medicine; ATTEND Internal Medicine
DX: S70.12XA Contusion of left thigh, initial encounter (principal); D62 Acute posthemorrhagic anemia; N17.9 Acute kidney failure, unspecified; E86.1 Hypovolemia; E03.9 Hypothyroidism, unspecified; E78.5 Hyperlipidemia, unspecified; I48.0 Paroxysmal atrial fibrillation; W06.XXXA Fall from bed, initial encounter; Y92.003 Bedroom of unspecified non-institutional (private) residence as the place of occurrence of the external cause; Z79.01 Long term (current) use of anticoagulants; Z20.822 Contact with and (suspected) exposure to COVID-19; Z96.659 Presence of unspecified artificial knee joint
CPT/HCPCS: 36415; 70450; 72170; 74176; 80048; 80061; 81003; 82550; 82947; 83735; 84100; 84439; 84443; 85018; 85025; 85610; 85730; 93005; 96361; 96374; 97161; 99285; G0378; J2405; J7030; U0003